=== PATIENT | female | born 1980 | race Caucasian/White ===

== ENCOUNTER 2018-09-02 18:03 | Emergency (ER) | payer BC ==
[~2018-09-02] VITALS: Ht 172.7 cm; Wt 65.3 kg
--- NOTE | 2018-09-02 19:06 | NUR ---
Patient discharged to home in stable conditon. Written and verbal after care instructions given. Patient verbalizes understanding of instructions. Patient ambulated out of ER with steady gait, no acute signs of distress, VSS, all belongings taken.
[2018-09-02 19:09] VITALS: BP 105/74
== END 2018-09-02 19:09 | disposition home or self-care (01) ==
LOC: ER 18:03
DX: O26.891 Other specified pregnancy related conditions, first trimester (principal); R10.2 Pelvic and perineal pain; Z3A.16 16 weeks gestation of pregnancy; Z88.0 Allergy status to penicillin
CPT/HCPCS: 76856; A4663